=== PATIENT | male | born 1980 | race Caucasian/White ===

== ENCOUNTER 2017-10-09 08:50 | Emergency (ER) | payer MEDICAID ==
[2017-10-09] MEDS: CLINDAMYCIN 600MG/50ML PREMIX 600 MG/50 ML BAG IVPB ONE (09:24)
--- NOTE | 2017-10-09 09:24 | Emergency Department Record ---
History of Present Illness - General Chief complaint: ENT Stated complaint: DENTAL PAIN Time Seen by Provider: 10/09/17 09:03 Source: Patient Mode of Arrival: Ambulatory Limitations: No limitations - History of Present Illness Initial comments: pt has a broken tooth and now has swelling in r lower jaw. complaint: Sore throat Onset/Timin -: Days(s) Location: Tooth # Severity scale (1-10): 5 Quality: Other Consistency: Constant Improves with: None Worsens with: None Context- Dental: History of dental caries Associated Symptoms: Gum swelling, Sore throat, Other - Related Data Home Medications Medication Instructions Recorded Confirmed Last Taken Ibuprofen [Motrin] 1,600 mg PO DAILY 10/09/17 10/09/17 10/08/17 Previous Rx's Medication Instructions Recorded Clindamycin HCl 150 mg PO TID #20 capsule 10/09/17 Clindamycin HCl [Cleocin HCl] 300 mg PO TID #20 capsule 10/09/17 Hydrocodone/Acetaminophen [[place] 1 each PO Q6HR PRN #10 tablet 10/09/17 5-325 Tablet] Allergies Allergy/AdvReac Type Severity Reaction Status Date / Time No Known Drug Allergies Allergy Verified 10/09/17 09:03 Travel Screening - Travel/Exposure Within Last 30 Days Have you traveled within the last 30 days?: No - Travel/Exposure Within Last Year Have you traveled outside the [place] in the last year?: No - Additonal Travel Details Have you been exposed to anyone with a communicable illness?: No - Travel Symptoms Symptom Screening: None Review of Systems Reviewed: No additional complaints except as noted below Constitutional: Reports: As per HPI. Denies: Chills, Fever, Malaise, Night sweats, Weakness, Weight change Eyes: Reports: As per HPI. Denies: Eye discharge, Eye pain, Photophobia, Vision change ENT: Reports: As per HPI, Dental pain, Throat pain. Denies: Congestion, Ear pain, Epistaxis, Hearing loss Respiratory: Reports: As per HPI. Denies: Cough, Dyspnea, Hemoptysis, Stridor, Wheezes Cardiovascular: Reports: As per HPI. Denies: Arrhythmia, Chest pain, Dyspnea on exertion, Edema, Murmurs, Orthopnea, Palpitations, Paroxysmal nocturnal dyspnea, Rheumatic Fever, Syncope Endocrine: Reports: As per HPI. Denies: Fatigue, Heat or cold intolerance, Polydipsia, Polyuria Gastrointestinal: Reports: As per HPI. Denies: Abdominal pain, Constipation, Diarrhea, Hematemesis, Hematochezia, Melena, Nausea, Vomiting Genitourinary: Reports: As per HPI. Denies: Dysuria, Frequency, Hematuria, Incontinence, Retention, Testicular pain, Testicular mass, Urgency Musculoskeletal: Reports: As per HPI. Denies: Arthralgia, Back pain, Gout, Joint swelling, Myalgia, Neck pain Skin: Reports: As per HPI. Denies: Bruising, Change in color, Change in hair/ nails, Lesions, Pruritus, Rash Neurological: Reports: As per HPI. Denies: Abnormal gait, Confusion, Headache, Numbness, Paresthesias, Seizure, Tingling, Tremors, Vertigo, Weakness Psychiatric: Reports: As per HPI. Denies: Anxiety, Auditory hallucinations, Depression, Homicidal thoughts, Suicidal thoughts, Visual hallucinations Hematological/Lymphatic: Reports: As per HPI. Denies: Anemia, Blood Clots, Easy bleeding, Easy bruising, Swollen glands Past Medical History - SOCIAL HISTORY Smoking Status: Current every day smoker Alcohol Use: Rare Drug Use: None - RESPIRATORY Hx Respiratory Disorders: No - CARDIOVASCULAR Hx Cardio Disorders: No - NEURO Hx Neuro Disorders: No - GI Hx GI Disorders: No - Hx Genitourinary Disorders: No - ENDOCRINE Hx Endocrine Disorders: Yes Hx Diabetes: Yes (type 2) - MUSCULOSKELETAL Hx Musculoskeletal Disorders: Yes Comment:: rotator cuff tear - PSYCH Hx Psych Problems: No - HEMATOLOGY/ONCOLOGY Hx Hematology/Oncology Disorders: No Family Medical History Any Significant Family History?: No Hx Dementia: Grandparents Hx Depression: Mother Hx Diabetes: Mother, Grandparents Hx Heart Disease: Grandparents Hx HTN: Father, Mother Hx Stroke: Grandparents Physical Exam - General General Appearance: Alert, Oriented x3, Cooperative, Mild distress - Head Head exam: Normal inspection - Eye Eye exam: Normal appearance, PERRL, EOMI Pupils: Normal accommodation - ENT ENT exam: Normal exam, Mucous membranes moist, Normal external ear exam, Normal orophraynx, TM's normal bilaterally Ear exam: Normal external inspection. negative: External canal tenderness Nasal Exam: Normal inspection. negative: Discharge, Sinus tenderness Mouth exam: Normal external inspection, Tongue normal Teeth exam: Dental caries, Dental tenderness # Throat exam: Normal inspection, Other (swelling rlower jaw). negative: Tonsillar erythema, Tonsillar exudate - Neck Neck exam: Normal inspection, Full ROM, Lymphadenopathy, Tenderness - Respiratory Respiratory exam: Normal lung sounds bilaterally. negative: Respiratory distress - Cardiovascular Cardiovascular Exam: Regular rate, Normal rhythm, Normal heart sounds - GI/Abdominal GI/Abdominal exam: Soft, Normal bowel sounds. negative: Tenderness - Rectal Rectal exam: Deferred - exam: Deferred - Extremities Extremities exam: Normal inspection, Full ROM, Normal capillary refill. negative: Tenderness - Back Back exam: Reports: Normal inspection, Full ROM. Denies: Muscle spasm, Rash noted, Tenderness - Neurological Neurological exam: Alert, CN II-XII intact, Normal gait, Oriented X3 - Psychiatric Psychiatric exam: Normal affect, Normal mood - Skin Skin exam: Dry, Intact, Normal color, Warm Course Vital Signs 10/09/17 08:54 Temperature 99.0 F Pulse Rate 98 H Respiratory 16 Rate Blood Pressure 140/88 Pulse Ox 96 Medical Decision Making - Lab Data Result diagrams: 10/09/17 09:19 10/09/17 09:19 Disposition Disposition: Discharge (dental abscess) Clinical Impression: Dental abscess Disposition: Home, Self-Care Condition: (1) Good Instructions: Dental Abscess (ED) Additional Instructions: follow up with dentist grady. return sooner if worse. Prescriptions: Hydrocodone/Acetaminophen [[place] 5-325 Tablet] 1 each PO Q6HR PRN #10 tablet PRN Reason: Pain - Moderate (5-7) Clindamycin HCl 150 mg PO TID #20 capsule Clindamycin HCl [Cleocin HCl] 300 mg PO TID #20 capsule Forms: Patient Portal Access Quality - Quality Measures Quality Measures: N/A - Blood Pressure Screening Does Patient Have Any of the Following: No Blood Pressure Classification: Pre-Hypertensive BP Reading Systolic Measurement: 140 Diastolic Measurement: 88 Screening for High Blood Pressure: < Pre-Hypertensive BP, F/U Documented > [ [id number]] Pre-Hypertensive Follow-up Interventions: Follow-up with rescreen every year.
[2017-10-09 09:27] LABS: BASO % 0.2 % (0-6); EOS % 0.3 % (0-6); GRAN % 67.5 % (47-80); HEMATOCRIT 45.4 % (42.0-52.0); HEMOGLOBIN 15.8 gm/dl (14.0-18.0); MEAN CELL VOLUME 86.6 fl (81-97); MEAN CORPUSCULAR HEMOGLOBIN 30.2 pg (27-33); MEAN CORPUSCULAR HGB CONC 34.8 g/dl (32-36); PLATELET COUNT 225 K/uL (130-400); RED BLOOD COUNT 5.24 M/uL (4.40-5.70); RED CELL DISTRIBUTION WIDTH 12.3 % (11.5-14.5)
[2017-10-09 09:40] LABS: BLOOD UREA NITROGEN 8 mg/dL (6-20); CREATININE 0.7 mg/dL (0.7-1.2); EST GLOMERULAR FILTRATION RATE > 60 mL/min
[2017-10-09 09:42] LABS: GLUCOSE,RANDOM 173 mg/dL (74-109)
== END 2017-10-09 10:07 | disposition home or self-care (01) ==
LOC: ER 08:50
DX: K04.7 Periapical abscess without sinus (principal); E11.9 Type 2 diabetes mellitus without complications; F17.210 Nicotine dependence, cigarettes, uncomplicated
CPT/HCPCS: 80048; 85025; 96365; 99284